=== PATIENT | female | born 1955 ===

== ENCOUNTER → 2016-04-10 | Outpatient (CLI) | payer BC ==
[2016-04-10 11:12] LABS: ALT 40 U/L (9-52); AST 22 U/L (14-36); Alkaline Phosphatase 94 U/L (38-126); Anion Gap 13 mmol/L; Blood Urea Nitrogen 13 mg/dL (7-17); C Reactive Protein 5.2 mg/L (<10.0); Calcium 9.6 mg/dL (8.4-10.2); Carbon Dioxide 22 mmol/L (22-30); Chloride 107 mmol/L (98-107); Cholesterol 146 mg/dL (<200); Creatine Kinase 53 U/L (30-135); Glucose 130 mg/dL (74-99); HDL Cholesterol 47 mg/dL (40-60); Non-African American GFR(MDRD) >60 (>60 ml/min/1.73 sqM); Potassium 4.3 mmol/L (3.5-5.1); Sodium 142 mmol/L (137-145); Total Bilirubin 0.6 mg/dL (0.2-1.3); Total Protein 7.8 g/dL (6.3-8.2); Triglycerides 117 mg/dL (<150)
== END | disposition home or self-care (01) ==
LOC: LABWHC1 09:06
PROVIDERS: ATTEND Internal Medicine
DX: N19 Unspecified kidney failure (principal); K75.81 Nonalcoholic steatohepatitis (NASH); E11.9 Type 2 diabetes mellitus without complications; E87.8 Other disorders of electrolyte and fluid balance, not elsewhere classified; E78.5 Hyperlipidemia, unspecified
CPT/HCPCS: 36415; 80053; 80061; 82550; 85652; 86140

== ENCOUNTER → 2016-04-21 | Outpatient (CLI) | payer BC ==
[2016-04-21 11:43] LABS: Hemoglobin A1C 6.9 % (4.2-6.1)
== END | disposition home or self-care (01) ==
LOC: LABWHC1 10:00
PROVIDERS: ATTEND Internal Medicine
DX: E11.9 Type 2 diabetes mellitus without complications (principal); E78.5 Hyperlipidemia, unspecified; E55.9 Vitamin D deficiency, unspecified
CPT/HCPCS: 36415; 82043; 83036

== ENCOUNTER → 2017-05-07 | Outpatient (CLI) | payer BC ==
[2017-05-07 11:27] LABS: Anion Gap 13 mmol/L; Blood Urea Nitrogen 12 mg/dL (7-17); Carbon Dioxide 25 mmol/L (22-30); Chloride 105 mmol/L (98-107); Glucose 130 mg/dL (74-99); Potassium 4.5 mmol/L (3.5-5.1); Sodium 143 mmol/L (137-145)
[2017-05-07 20:42] LABS: Hemoglobin A1C 7.1 % (4.0-6.0)
== END | disposition home or self-care (01) ==
LOC: LABWHC1 10:27
PROVIDERS: ATTEND Internal Medicine
DX: E78.5 Hyperlipidemia, unspecified (principal); E11.9 Type 2 diabetes mellitus without complications; E87.8 Other disorders of electrolyte and fluid balance, not elsewhere classified
CPT/HCPCS: 36415; 80048; 82306; 83036

== ENCOUNTER → 2017-07-17 | Outpatient (CLI) | payer BC ==
[2017-07-17 22:19] LABS: Hemoglobin A1C 7.4 % (4.0-6.0)
== END | disposition home or self-care (01) ==
LOC: LABWHC1 10:50
PROVIDERS: ATTEND Internal Medicine
DX: E55.9 Vitamin D deficiency, unspecified (principal)
CPT/HCPCS: 36415; 82306; 82947; 83036

== ENCOUNTER → 2017-12-13 | Outpatient (CLI) | payer BC ==
[2017-12-13 15:39] LABS: Anion Gap 5.9 mmol/L (4.00-12.00); Calcium 9.4 mg/dL (8.7-10.3); Carbon Dioxide 27.1 mmol/L (21.6-31.8); Potassium 4.4 mmol/L (3.5-5.5)
[2017-12-13 16:38] LABS: Hemoglobin A1C 6.9 % (4.0-6.0)
== END | disposition home or self-care (01) ==
LOC: LABWHC1 10:48
PROVIDERS: ATTEND Internal Medicine
DX: E55.9 Vitamin D deficiency, unspecified (principal); E11.9 Type 2 diabetes mellitus without complications; E87.8 Other disorders of electrolyte and fluid balance, not elsewhere classified
CPT/HCPCS: 36415; 80048; 82306; 83036

== ENCOUNTER 2019-11-23 10:48 | Emergency (ER) | payer BC, MEDICARE ==
[2019-11-23 10:55] VITALS: TEMP 98.2
[2019-11-23] MEDS ORDERED: SODIUM CHLORIDE 0.9% 1,000 ML IV STA (11:18)
--- NOTE | 2019-11-23 11:25 | ED ---
General Adult HPI - General Chief complaint: Shortness of Breath Stated complaint: cough body aches Time Seen by Provider: 11/23/19 10:56 Source: patient Mode of arrival: ambulatory Limitations: no limitations - History of Present Illness Initial comments: 64yo female presenting for all over pain, cough, fever. Patient states she has felt warm all night and developed cough congestion. She states all the joints of her body hurt and she feels weaknes. Denies chest pain abdominal pain shortness of breath. She states she is a dull headache denies any visual changes localized weakness. Denies vomiting, diarrhea. Admits to sore throat. Denies rashes. States not concerned for covid. Patient admits to DM history taking oral medications. Denies recent surgeries. Denies leg swelling. Patient appears nontoxic in no acute distress on arrival. I did obtain history between and conference interpreter. - Related Data Home Medications Medication Instructions Recorded Confirmed Atorvastatin [Lipitor] 10 mg PO HS 11/23/19 11/23/19 Glimepiride [Amaryl] 2 mg PO [id number] 11/23/19 11/23/19 metFORMIN HCL 1,000 mg PO BID 11/23/19 11/23/19 Allergies Allergy/AdvReac Type Severity Reaction Status Date / Time No Known Allergies Allergy Verified 11/23/19 11:59 Review of Systems ROS Statement: Those systems with pertinent positive or pertinent negative responses have been documented in the HPI. ROS Other: All systems not noted in ROS Statement are negative. Past Medical History Past Medical History: Diabetes Mellitus History of Any Multi-Drug Resistant Organisms: None Reported Past Surgical History: Hysterectomy Past Psychological History: No Psychological Hx Reported Past Alcohol Use History: None Reported Past Drug Use History: None Reported General Exam - General Exam Comments Initial Comments: General: The patient is awake and alert, in no distress Eye: +3 mm pupils are equal, round and reactive to light, extra-ocular movements are intact. No nystagmus. There is normal conjunctiva bilaterally. No signs of icterus. Ears, nose, mouth and throat: There are moist mucous membranes and no oral lesions. Oropharynx nonerythematous no uvular deviation or tonsillar exudates. Neck: The neck is supple, there is no tenderness or JVD. Cardiovascular: There is a regular rate and rhythm. No murmur, rub or gallop is appreciated. Respiratory: Lungs are clear to auscultation, respirations are non-labored, breath sounds are equal. No wheezes, stridor, rales, or rhonchi. Gastrointestinal: Soft, non-distended, non-tender abdomen without masses or organomegaly noted. There is no rebound or guarding present. Musculoskeletal: Normal ROM, no tenderness. Strength 5/5. Sensation intact. Radial pulses equal bilaterally 2+. Neurological: A&O x 3. CN II-XII intact grossly, There are no obvious motor or sensory deficits. Coordination appears grossly intact. Speech is normal. Skin: Skin is warm and dry and no rashes or lesions are noted. No LE edema. Psychiatric: Cooperative, appropriate mood & affect, normal judgment. Limitations: no limitations Course Vital Signs 11/23/19 11/23/19 11/23/19 10:52 11:39 12:00 Temperature 98.2 F Pulse Rate 95 80 85 Respiratory 18 18 17 Rate Blood Pressure 142/72 113/56 O2 Sat by Pulse 98 96 97 Oximetry 11/23/19 12:30 Temperature Pulse Rate 79 Respiratory 19 Rate Blood Pressure 120/67 O2 Sat by Pulse 97 Oximetry Medical Decision Making - Medical Decision Making labs stable. EKG no acute changes, some nonspecif t wave inversion noted. Denied chest pain or SOB. triage was performed without an conference interpreter and patient states she does not have SOB/states she is breathing well. On reevaluation she states she is well. I discussed labs. Importance of f/u and return for any CP/SOB. Patient is agreeable to care plan and discharge. Instructed to take tylenol or ibuprofen for pain. Patient agreeable to care plan. Dr. Lopez reviewed ekg and is agreeable to care plan. Ventricular rate 91 bpm, ME interval 154 ms, QRS respirations are 4 ms the QT/QTC 340/418 ms. This is normal sinus service no ST elevation or depression appreciated. There is nonspecific T-wave inversion. EKG reviewed by attending provider. - Lab Data Result diagrams: 11/23/19 11:41 11/23/19 11:41 Lab Results 11/23/19 11/23/19 11/23/19 Range/Units 11:41 11:41 11:41 WBC 3.8 (3.8-10.6) k/uL RBC 5.22 (3.80-5.40) m/uL Hgb 14.0 (11.4-16.0) gm/dL Hct 43.3 (34.0-46.0) % MCV 82.9 (80.0-100.0) fL MCH 26.7 (25.0-35.0) pg MCHC 32.3 (31.0-37.0) g/dL RDW 13.6 (11.5-15.5) % Plt Count 121 L (150-450) k/uL Neutrophils % 57 % Lymphocytes % 28 % Monocytes % 10 % Eosinophils % 1 % Basophils % 1 % Neutrophils # 2.2 (1.3-7.7) k/uL Lymphocytes # 1.1 (1.0-4.8) k/uL Monocytes # 0.4 (0-1.0) k/uL Eosinophils # 0.0 (0-0.7) k/uL Basophils # 0.0 (0-0.2) k/uL PT 11.0 (9.0-12.0) sec INR 1.1 (<1.2) APTT 23.5 (22.0-30.0) sec Sodium 134 L (137-145) mmol/L Potassium 4.1 (3.5-5.1) mmol/L Chloride 103 (98-107) mmol/L Carbon Dioxide 23 (22-30) mmol/L Anion Gap 8 mmol/L BUN 12 (7-17) mg/dL Creatinine 0.39 L (0.52-1.04) mg/dL Est GFR (CKD-EPI)AfAm >90 (>60 ml/min/1.73 sqM) Est GFR (CKD-EPI)NonAf >90 (>60 ml/min/1.73 sqM) Glucose 313 H (74-99) mg/dL Plasma Lactic Acid Jj (0.7-2.0) mmol/L Calcium 8.9 (8.4-10.2) mg/dL Total Bilirubin 0.7 (0.2-1.3) mg/dL AST 61 H (14-36) U/L ALT 59 H (4-34) U/L Alkaline Phosphatase 81 (38-126) U/L Troponin I (0.000-0.034) ng/mL Total Protein 7.3 (6.3-8.2) g/dL Albumin 4.0 (3.5-5.0) g/dL 11/23/19 11/23/19 Range/Units 11:41 11:41 WBC (3.8-10.6) k/uL RBC (3.80-5.40) m/uL Hgb (11.4-16.0) gm/dL Hct (34.0-46.0) % MCV (80.0-100.0) fL MCH (25.0-35.0) pg MCHC (31.0-37.0) g/dL RDW (11.5-15.5) % Plt Count (150-450) k/uL Neutrophils % % Lymphocytes % % Monocytes % % Eosinophils % % Basophils % % Neutrophils # (1.3-7.7) k/uL Lymphocytes # (1.0-4.8) k/uL Monocytes # (0-1.0) k/uL Eosinophils # (0-0.7) k/uL Basophils # (0-0.2) k/uL PT (9.0-12.0) sec INR (<1.2) APTT (22.0-30.0) sec Sodium (137-145) mmol/L Potassium (3.5-5.1) mmol/L Chloride (98-107) mmol/L Carbon Dioxide (22-30) mmol/L Anion Gap mmol/L BUN (7-17) mg/dL Creatinine (0.52-1.04) mg/dL Est GFR (CKD-EPI)AfAm (>60 ml/min/1.73 sqM) Est GFR (CKD-EPI)NonAf (>60 ml/min/1.73 sqM) Glucose (74-99) mg/dL Plasma Lactic Acid Jj 1.4 (0.7-2.0) mmol/L Calcium (8.4-10.2) mg/dL Total Bilirubin (0.2-1.3) mg/dL AST (14-36) U/L ALT (4-34) U/L Alkaline Phosphatase (38-126) U/L Troponin I <0.012 (0.000-0.034) ng/mL Total Protein (6.3-8.2) g/dL Albumin (3.5-5.0) g/dL Disposition Clinical Impression: Body aches, Cough, Chills, Sore throat, Blood glucose elevated Disposition: HOME SELF-CARE Condition: Good Instructions (If sedation given, give patient instructions): Upper Respiratory Infection (ED) Additional Instructions: Please use medication as discussed. Please follow-up with family doctor in the next 2 days of symptoms have not improved, return immediately for any chest pain or shortness of breath. Please return to emergency room if the symptoms increase or worsen or for any other concerns. Is patient prescribed a controlled substance at d/c from ED?: No Referrals: Dorian Clark MD [Primary Care Provider] - 1-2 days Time of Disposition: 12:18
--- NOTE | 2019-11-23 11:37 | XR ---
EXAMINATION TYPE: XR chest 2V DATE OF EXAM: 11/23/2019 COMPARISON: 04/27/2009 INDICATION: Difficulty breathing TECHNIQUE: Frontal and lateral views of the chest are obtained. FINDINGS: The heart size is normal. The pulmonary vasculature is normal. The lungs are clear. IMPRESSION: 1. No acute pulmonary process.
[2019-11-23 11:47] LABS: Basophils % (A) 1 %; Eosinophils % (A) 1 %; HCT 43.3 % (34.0-46.0); Lymphocytes # (A) 1.1 k/uL (1.0-4.8); Lymphocytes % (A) 28 %; MCH 26.7 pg (25.0-35.0); MCHC 32.3 g/dL (31.0-37.0); MCV 82.9 fL (80.0-100.0); Mean Platelet Volume 9.4; Monocytes # (A) 0.4 k/uL (0-1.0); Monocytes % (A) 10 %; Neutrophils # (A) 2.2 k/uL (1.3-7.7); Neutrophils % (A) 57 %; Platelet Count 121 k/uL (150-450); RBC 5.22 m/uL (3.80-5.40); RDW 13.6 % (11.5-15.5); WBC 3.8 k/uL (3.8-10.6)
[2019-11-23 11:55] LABS: INR 1.1 (<1.2); Partial Thromboplastin Time 23.5 sec (22.0-30.0)
[2019-11-23] MEDS ORDERED: KETOROLAC 15 MG/ML 1 ML VIAL IVP STA (11:58)
[2019-11-23 12:03] LABS: ALT 59 U/L (4-34); AST 61 U/L (14-36); African American GFR (CKD) >90 (>60 ml/min/1.73 sqM); Alkaline Phosphatase 81 U/L (38-126); Anion Gap 8 mmol/L; Blood Urea Nitrogen 12 mg/dL (7-17); Calcium 8.9 mg/dL (8.4-10.2); Carbon Dioxide 23 mmol/L (22-30); Chloride 103 mmol/L (98-107); Glucose 313 mg/dL (74-99); Non-African American GFR(CKD) >90 (>60 ml/min/1.73 sqM); Potassium 4.1 mmol/L (3.5-5.1); Sodium 134 mmol/L (137-145); Total Bilirubin 0.7 mg/dL (0.2-1.3); Total Protein 7.3 g/dL (6.3-8.2)
[2019-11-23 12:35] VITALS: BP 120/67; PULSE 79; RESP 19
== END 2019-11-23 12:35 | disposition home or self-care (01) ==
LOC: EC 10:48
DX: J02.9 Acute pharyngitis, unspecified (principal); E11.65 Type 2 diabetes mellitus with hyperglycemia; Z79.84 Long term (current) use of oral hypoglycemic drugs; Z90.710 Acquired absence of both cervix and uterus; Z20.828 Contact with and (suspected) exposure to other viral communicable diseases
CPT/HCPCS: 99285 ×2; 96374 ×2; 96361 ×2; 36415; 93005; 80053; 83605; 84484; 85025; 85610; 85730; 71046; U0003; J1885

== ENCOUNTER → 2019-12-16 | Outpatient (CLI) | payer BC, MEDICARE ==
[2019-12-16 11:46] LABS: African American GFR (CKD) >90 (>60 ml/min/1.73 sqM); Blood Urea Nitrogen 18 mg/dL (7-17); Non-African American GFR(CKD) >90 (>60 ml/min/1.73 sqM)
[2019-12-16 11:52] LABS: Basophils # (A) 0.1 k/uL (0-0.2); Basophils % (A) 1 %; Eosinophils # (A) 0.2 k/uL (0-0.7); Eosinophils % (A) 4 %; HCT 44.1 % (34.0-46.0); Lymphocytes # (A) 2.3 k/uL (1.0-4.8); Lymphocytes % (A) 40 %; MCH 26.9 pg (25.0-35.0); MCHC 31.7 g/dL (31.0-37.0); MCV 84.8 fL (80.0-100.0); Mean Platelet Volume 9.1; Monocytes # (A) 0.3 k/uL (0-1.0); Monocytes % (A) 5 %; Neutrophils # (A) 2.7 k/uL (1.3-7.7); Neutrophils % (A) 48 %; Platelet Count 207 k/uL (150-450); RDW 13.3 % (11.5-15.5); WBC 5.6 k/uL (3.8-10.6)
[2019-12-16 11:56] LABS: Albumin 4.3 g/dL (3.5-5.0); Bilirubin,Unconjugated 0.8 mg/dL (0.0-1.1); C Reactive Protein 8.1 mg/L (<10.0); Total Bilirubin 0.8 mg/dL (0.2-1.3); Total Protein 7.7 g/dL (6.3-8.2)
[2019-12-16 13:52] LABS: Erythrocyte Sedimentation Rate 15 mm/hr (0-20)
--- NOTE | 2019-12-16 14:46 | CT ---
EXAMINATION TYPE: CT abdomen w con DATE OF EXAM: 12/16/2019 COMPARISON: CT abdomen 11/17/2015 HISTORY: Abdominal pain, patient poor historian. CT DLP: 633.4 mGycm Automated exposure control for dose reduction was used. TECHNIQUE: Helical acquisition of images was performed from the lung bases through the top of iliac crest to include entire abdomen. CONTRAST: Performed with Oral Contrast and with IV Contrast, patient injected with 100ml mL of Isovue 300. FINDINGS: LUNG BASES: No significant abnormality is appreciated. Stable subpleural thickening in the medial asp ect of left lung base LIVER/GB: No significant interval change is appreciated, liver is enlarged and shows low-attenuation likely due to hepatic steatosis, gallbladder is within normal limits. PANCREAS: No significant abnormality is seen. SPLEEN: No significant abnormality is seen. ADRENALS: No significant abnormality is seen. KIDNEYS: Right renal mass now measures approximately 3 cm in greatest AP dimension and has grown only minimally, lesion measures approximately 2.3 cm in 2016. Left renal low dense lesion also shows a si milar appearance, there is no hydronephrosis or renal calculus evident BOWEL: No significant abnormality is seen. LYMPH NODES: No significant abnormality is appreciated. OSSEOUS STRUCTURES: No significant abnormality is seen. FREE AIR: No Free Air visible ASCITES: None visible. RETROPERITONEAL ADENOPATHY: No Retroperitoneal Adenopathy visible IMPRESSION: HEPATIC STEATOSIS AND HEPATOMEGALY. 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
[2019-12-16 22:41] LABS: Hemoglobin A1C 9.9 % (4.0-6.0)
[2019-12-16 23:00] LABS: Alpha Fetoprotein, Tumor Mkr 5.3 ng/mL (0.0-7.9)
[2019-12-16 23:27] LABS: Urine Creatinine 130.2 mg/dL
[2019-12-17 00:30] LABS: Hepatitis A Antibody IgM Non-Reactive (Non-Reactive); Hepatitis B Core IgM Non-Reactive (Non-Reactive); Hepatitis B Surface Antigen Non-Reactive (Non-Reactive); Hepatitis C IgG Antibody Non-Reactive (Non-Reactive)
== END | disposition home or self-care (01) ==
LOC: RADCTMAIN 10:29
PROVIDERS: ATTEND Internal Medicine
DX: K76.0 Fatty (change of) liver, not elsewhere classified (principal); R16.0 Hepatomegaly, not elsewhere classified; N28.89 Other specified disorders of kidney and ureter; D64.9 Anemia, unspecified; K76.9 Liver disease, unspecified; E78.5 Hyperlipidemia, unspecified; E11.65 Type 2 diabetes mellitus with hyperglycemia
CPT/HCPCS: 80076; 80074; 85652; 84443; 82565; 84520; 85025; 86140; 82105; 82306; 82043; 82570; 83036; 74160; 36415; Q9967

== ENCOUNTER → 2020-08-11 | Outpatient (CLI) | payer BC, MEDICARE ==
[2020-08-11 10:21] LABS: Appearance,Urine Clear (Clear); Bilirubin,Urine Negative (Negative); Blood,Urine Negative (Negative); Color,Urine Yellow; Glucose,Urine (UA) Negative (Negative); Ketones,Urine Negative (Negative); Leukocyte Esterase,Urine Moderate (Negative); Mucus,Urine Occasional /hpf; Nitrite,Urine Negative (Negative); Protein,Urine Negative (Negative); RBC,Urine 2 /hpf (0-5); Squamous Epithelial Cell,Urine <1 /hpf (0-4); Urobilinogen,Urine <2.0 mg/dL (<2.0); WBC,Urine 17 /hpf (0-5)
--- NOTE | 2020-08-11 13:10 | XR ---
AP pelvis HISTORY: Pain in hips Single frontal view the pelvis Bone mineralization is reduced, joint spaces and alignment are maintained. Some degenerative disc timo nges are present in the lower lumbar spine. No fracture or dislocation. There are overlying artifacts . IMPRESSION: Suspect low bone mineralization. Hip MRI could BE performed for better evaluation.
--- NOTE | 2020-08-11 13:26 | XR ---
Right knee HISTORY: Pain and arthritis 3 views of the right knee correlation prior exam 11/03/2015 Marginal spurring and joint space loss is present especially in the medial compartment, patellofemora l joint. Alignment is maintained, bone mineralization is reduced. Alignment is normal. No evident edgardo nt effusion. IMPRESSION: Osteoarthritis
--- NOTE | 2020-08-11 13:35 | XR ---
Bilateral hips HISTORY: Pain and arthritis 2 views of each hip submitted and correlated to pelvis same date Bone mineralization, joint spaces and alignment are maintained. No fracture or dislocation. IMPRESSION: Normal hips.
[2020-08-11 14:14] LABS: Basophils % (A) 1.4 %; Eosinophils # (A) 0.73 X 10*3/uL (0.04-0.35); Eosinophils % (A) 10.5 %; HGB 13.2 g/dL (12.0-15.0); Lymphocytes # (A) 2.25 X 10*3/uL (0.90-5.00); Lymphocytes % (A) 32.4 %; MCH 27.1 pg (27.0-32.0); MCHC 32.2 g/dL (32.0-37.0); MCV 84.2 fL (80.0-97.0); Mean Platelet Volume 12.7 fL (9.5-12.2); Monocytes # (A) 0.56 X 10*3/uL (0.20-1.00); Monocytes % (A) 8.1 %; Neutrophils # (A) 3.29 X 10*3/uL (1.80-7.70); Neutrophils % (A) 47.3 %; Platelet Count 187 X 10*3/uL (140-440); RBC 4.87 X 10*6/uL (4.10-5.20); RDW 13.7 % (11.5-14.5); WBC 6.95 X 10*3/uL (4.50-10.00)
[2020-08-11 17:10] LABS: Erythrocyte Sedimentation Rate 10 mm/Hr (0-30)
[2020-08-11 17:53] LABS: Hemoglobin A1C 8.8 % (4.0-6.0)
[2020-08-11 18:59] LABS: Anti-Smith Ab Interp NEGATIVE (NEGATIVE); Cyclic Citrull Pep IgG Unit 2.9 U/mL; Cyclic Citrullinated Pep IgG NEGATIVE (NEGATIVE); DNA Double-Stranded NEGATIVE (NEGATIVE)
[2020-08-11 20:14] LABS: Urine Creatinine 128.5 mg/dL
[2020-08-11 21:01] LABS: ALT 52 U/L (8-44); AST 33 U/L (13-35); African American GFR (CKD) 110.1 (60.0-200.0); Albumin/Globulin Ratio 1.56 (1.60-3.17); Alkaline Phosphatase 120 U/L (41-126); C Reactive Protein <0.4 mg/dL (0.0-0.8); Calcium 9.4 mg/dL (8.7-10.3); Carbon Dioxide 26.7 mmol/L (21.6-31.8); Chloride 105 mmol/L (96-109); Chol/HDL Ratio 3.02; Cholesterol 163 mg/dL (0-200); Creatine Kinase 33 U/L (26-186); Globulin 2.7 g/dL (1.6-3.3); Glucose 186 mg/dL (70-110); LDL Cholesterol,Calculated 90.2 mg/dL (0.0-131.0); Magnesium 1.7 mg/dL (1.5-2.4); Phosphorus 4.4 mg/dL (2.4-5.1); Potassium 4.1 mmol/L (3.5-5.5); Rheumatoid Factor, Qnt 6 IU/mL (0-15); Sodium 142 mmol/L (135-145); Total Bilirubin 0.7 mg/dL (0.3-1.2); Total Protein 6.9 g/dL (6.2-8.2); Uric Acid 3.9 mg/dL (2.9-7.7)
[2020-08-12 14:23] LABS: C-ANCA <1:20 Titer (<1:20)
== END | disposition home or self-care (01) ==
LOC: LABWHC1 09:13
PROVIDERS: ATTEND Internal Medicine
DX: D64.9 Anemia, unspecified (principal); M17.11 Unilateral primary osteoarthritis, right knee; E87.8 Other disorders of electrolyte and fluid balance, not elsewhere classified; E78.5 Hyperlipidemia, unspecified; I10 Essential (primary) hypertension; E11.65 Type 2 diabetes mellitus with hyperglycemia; E05.90 Thyrotoxicosis, unspecified without thyrotoxic crisis or storm; M81.0 Age-related osteoporosis without current pathological fracture; M06.9 Rheumatoid arthritis, unspecified; R80.9 Proteinuria, unspecified; N28.1 Cyst of kidney, acquired; R63.4 Abnormal weight loss
CPT/HCPCS: 36415; 72170; 73521; 80053; 80061; 81001; 82043; 82272; 82306; 82550; 82570; 83036; 83735; 84100; 84443; 84550; 85025; 85652; 86038; 86140; 86200; 86225; 86235; 86255; 86431

== ENCOUNTER → 2021-05-30 | Outpatient (CLI) | payer MEDICARE, BC ==
[2021-05-30 22:36] LABS: Basophils # (A) 0.09 X 10*3/uL (0.00-0.10); Basophils % (A) 1.2 %; Eosinophils # (A) 0.66 X 10*3/uL (0.04-0.35); Eosinophils % (A) 9.1 %; HCT 41.3 % (37.2-46.3); Immature Grans, Automated 0.1 %; Lymphocytes # (A) 2.39 X 10*3/uL (0.90-5.00); Lymphocytes % (A) 33.1 %; MCH 26.7 pg (27.0-32.0); MCHC 31.5 g/dL (32.0-37.0); MCV 84.8 fL (80.0-97.0); Monocytes # (A) 0.51 X 10*3/uL (0.20-1.00); Monocytes % (A) 7.1 %; NRBC Per 100 WBC 0 /100 WBCS (0.0-0.0); Neutrophils # (A) 3.56 X 10*3/uL (1.80-7.70); Neutrophils % (A) 49.4 %; Platelet Count 213 X 10*3/uL (140-440); RBC 4.87 X 10*6/uL (4.10-5.20); RDW 13.2 % (11.5-14.5); WBC 7.22 X 10*3/uL (4.50-10.00)
[2021-05-30 23:05] LABS: ALT 33 U/L (8-44); AST 22 U/L (13-35); African American GFR (CKD) 117.5 (60.0-200.0); Albumin 4.5 g/dL (3.8-4.9); Albumin/Globulin Ratio 1.53 (1.60-3.17); Alkaline Phosphatase 84 U/L (41-126); BUN/Creat Ratio 24.07 Ratio (12.00-20.00); Blood Urea Nitrogen 11.6 mg/dL (9.0-27.0); Calcium 9.4 mg/dL (8.7-10.3); Carbon Dioxide 24.2 mmol/L (20.0-27.5); Chloride 102 mmol/L (96-109); Creatine Kinase 43 U/L (26-186); Globulin 2.9 g/dL (1.6-3.3); Glucose 191 mg/dL (70-110); Magnesium 1.8 mg/dL (1.5-2.4); Non-African American GFR(CKD) 101.4 (60.0-200.0); Phosphorus 3.1 mg/dL (2.4-5.1); Potassium 4.2 mmol/L (3.5-5.5); Sodium 138 mmol/L (135-145); Total Protein 7.4 g/dL (6.2-8.2); Uric Acid 2.5 mg/dL (2.9-7.7)
[2021-05-30 23:10] LABS: C Reactive Protein <0.30 mg/dL (0.00-0.80); Chol/HDL Ratio 4.55 Ratio; LDL Cholesterol,Calculated 161.4 mg/dL (0.0-131.0); VLDL Calculation 18.02 mg/dL (5.00-40.00)
[2021-05-30 23:11] LABS: Erythrocyte Sedimentation Rate 12 mm/Hr (0-30)
[2021-05-31 05:15] LABS: DNA Double-Stranded NEGATIVE (NEGATIVE)
== END | disposition home or self-care (01) ==
LOC: LABWHC1 14:59
PROVIDERS: ATTEND Internal Medicine
DX: Z00.00 Encounter for general adult medical examination without abnormal findings (principal); E78.5 Hyperlipidemia, unspecified; E11.65 Type 2 diabetes mellitus with hyperglycemia; E03.9 Hypothyroidism, unspecified; E55.9 Vitamin D deficiency, unspecified; M81.0 Age-related osteoporosis without current pathological fracture; D64.9 Anemia, unspecified; M10.9 Gout, unspecified; N18.30 Chronic kidney disease, stage 3 unspecified; N20.0 Calculus of kidney; J45.909 Unspecified asthma, uncomplicated
CPT/HCPCS: 36415; 80053; 80061; 82306; 82550; 83036; 83735; 84100; 84439; 84443; 84550; 85025; 85652; 86038; 86140; 86225

== ENCOUNTER → 2022-02-21 | Outpatient (CLI) | payer MEDICARE ==
[2022-02-21 15:06] LABS: ALT 31 U/L (8-44); AST 23 U/L (13-35); African American GFR (CKD) 108.7 (60.0-200.0); Albumin 4.3 g/dL (3.8-4.9); Albumin/Globulin Ratio 1.49 (1.60-3.17); Alkaline Phosphatase 98 U/L (41-126); BUN/Creat Ratio 19.73 Ratio (12.00-20.00); Blood Urea Nitrogen 11.8 mg/dL (9.0-27.0); Calcium 9.9 mg/dL (8.7-10.3); Carbon Dioxide 24.1 mmol/L (20.0-27.5); Chloride 103 mmol/L (96-109); Creatine Kinase 34 U/L (26-186); Globulin 2.9 g/dL (1.6-3.3); Glucose 151 mg/dL (70-110); Non-African American GFR(CKD) 93.8 (60.0-200.0); Potassium 4.9 mmol/L (3.5-5.5); Sodium 139 mmol/L (135-145); Total Protein 7.1 g/dL (6.2-8.2); Uric Acid 3.7 mg/dL (2.9-7.7)
[2022-02-21 15:14] LABS: C Reactive Protein <0.30 mg/dL (0.00-0.80); Chol/HDL Ratio 4.71 Ratio; LDL Cholesterol,Calculated 159.3 mg/dL (0.0-131.0)
[2022-02-21 15:50] LABS: Basophils # (A) 0.11 X 10*3/uL (0.00-0.10); Basophils % (A) 1.3 %; Eosinophils # (A) 0.52 X 10*3/uL (0.04-0.35); Eosinophils % (A) 6.1 %; HCT 43.4 % (37.2-46.3); HGB 13.6 g/dL (12.0-15.0); Immature Grans, Automated 0 %; Lymphocytes # (A) 3.79 X 10*3/uL (0.90-5.00); Lymphocytes % (A) 44.4 %; MCH 26.6 pg (27.0-32.0); MCHC 31.3 g/dL (32.0-37.0); MCV 84.9 fL (80.0-97.0); Mean Platelet Volume 11.7 fL (9.5-12.2); Monocytes # (A) 0.56 X 10*3/uL (0.20-1.00); Monocytes % (A) 6.6 %; NRBC Per 100 WBC 0 /100 WBCS (0.0-0.0); Neutrophils # (A) 3.55 X 10*3/uL (1.80-7.70); Neutrophils % (A) 41.6 %; Platelet Count 226 X 10*3/uL (140-440); RBC 5.11 X 10*6/uL (4.10-5.20); RDW 14.2 % (11.5-14.5); WBC 8.53 X 10*3/uL (4.50-10.00)
[2022-02-21 16:22] LABS: Erythrocyte Sedimentation Rate 46 mm/Hr (0-30)
[2022-02-21 17:47] LABS: Appearance,Urine Clear (Clear); Bilirubin,Urine Negative (Negative); Blood,Urine Negative (Negative); Color,Urine Yellow (Yellow); Ketones,Urine Negative (Negative); Nitrite,Urine Negative (Negative); Specific Gravity,Urine 1.016 (1.001-1.030); Urobilinogen,Urine 0.2 (0.2,1.0)
[2022-02-21 17:52] LABS: Bacteria,Urine None Seen /HPF (None Seen)
[2022-02-21 18:45] LABS: Urine Creatinine 95.2 mg/dL (28.0-217.0)
== END | disposition home or self-care (01) ==
LOC: LABWHC1 08:41
PROVIDERS: ATTEND Internal Medicine
DX: Z00.00 Encounter for general adult medical examination without abnormal findings (principal); E78.5 Hyperlipidemia, unspecified; E11.65 Type 2 diabetes mellitus with hyperglycemia; N39.0 Urinary tract infection, site not specified; M81.0 Age-related osteoporosis without current pathological fracture; M10.9 Gout, unspecified; E55.9 Vitamin D deficiency, unspecified; D63.1 Anemia in chronic kidney disease; N18.30 Chronic kidney disease, stage 3 unspecified; M06.4 Inflammatory polyarthropathy
CPT/HCPCS: 36415; 80053; 80061; 81001; 82043; 82306; 82550; 82570; 83036; 83735; 84100; 84443; 84550; 85025; 85652; 86140; 87086

== ENCOUNTER → 2022-07-19 | Outpatient (CLI) | payer MEDICARE ==
[2022-07-19 15:13] LABS: ALT 22 U/L (8-44); AST 17 U/L (13-35); Chol/HDL Ratio 3.14 Ratio; LDL Cholesterol,Calculated 100.3 mg/dL (0.0-131.0); VLDL Calculation 16.92 mg/dL (5.00-40.00)
== END | disposition home or self-care (01) ==
LOC: LABWHC1 07:40
PROVIDERS: ATTEND Internal Medicine
DX: E11.65 Type 2 diabetes mellitus with hyperglycemia (principal); E78.5 Hyperlipidemia, unspecified; E55.9 Vitamin D deficiency, unspecified
CPT/HCPCS: 36415; 80061; 82306; 83036; 84450; 84460

== ENCOUNTER → 2022-08-03 | Outpatient (CLI) | payer MEDICARE ==
--- NOTE | 2022-08-03 10:20 | XR ---
EXAMINATION TYPE: XR knee complete RT DATE OF EXAM: 08/03/2022 COMPARISON: Right knee radiograph 08/11/2020, 11/03/2015 HISTORY: Pain arthritis TECHNIQUE: Frontal, lateral and oblique images of the right knee are obtained. FINDINGS: There is no acute fracture/dislocation evident. Mild structure frontal joint space narrowi ng with minimal spurring along the medial compartment. The overlying soft tissue appears unremarkable . IMPRESSION: 1. There is no acute fracture or dislocation seen. 2. Minimal osteoarthritic changes.
== END | disposition home or self-care (01) ==
LOC: LABWHC1 08:35
PROVIDERS: ATTEND Internal Medicine
DX: M17.11 Unilateral primary osteoarthritis, right knee (principal); M81.0 Age-related osteoporosis without current pathological fracture

== ENCOUNTER → 2022-08-07 | Outpatient (CLI) | payer MEDICARE ==
--- NOTE | 2022-08-07 18:36 | BD ---
EXAMINATION TYPE: Axial Bone Density DATE OF EXAM: 08/07/2022 CLINICAL HISTORY: 67 years old Female. ICD-10 CODE: N95.1 Height: 61in Weight: 152lb FRAX RISK QUESTIONS: History of Fracture in Adulthood: no Secondary Osteoporosis: RISK FACTORS HISTORY OF: Family History of Osteoporosis: unknown Active: yes Postmenopausal woman: yes Lost more than 2 inches in height since high school: unknown Frequent falls: no MEDICATIONS: Additional Medications: diabetic meds, cholesterol meds, vitamin d Additional History: pt's translated her health history EXAM MEASUREMENTS: Bone mineral densitometry was performed using the [employer]. Bone mineral density as measured about the Lumbar spine is: ----- L1-L4(G/cm2): 0.852 T Score Values are as follows: ----- L1: -2.7 ----- L2: -3.2 ----- L3: -2.8 ----- L4: -2.5 ----- L1-L4: -2.7 Z Score Values are as follows: unavailable ----- Bone mineral density has: Decreased -7.6% since study of: 04-17-2013 Bone mineral density about the R hip (g/cm2): 0.900 Bone mineral density about the L hip (g/cm2): 0.866 T Score values are as follows: -----R Neck: -1.3 -----L Neck: -1.5 -----R Total: -0.9 -----L Total: -1.1 Z Score values are as follows: unavailable ----- Bone mineral density has: Decreased 10% since study of: 04-17-2013 FRAX%s: The graph provided illustrates a 5.9% chance for a major osteoporotic fx and a 1.1% chance fo r the hips probability for fx in 10 years time. IMPRESSION: Osteoporosis (T Score less than -2.5). There is increased fracture risk and therapy is usually indicated based on age. Re-Screen 1-2 years. NOTE: T-SCORE=SD OF THE YOUNG ADULT MEAN.
== END | disposition home or self-care (01) ==
LOC: RADBDWWP 14:46
PROVIDERS: ATTEND Internal Medicine
DX: M81.0 Age-related osteoporosis without current pathological fracture (principal); M85.89 Other specified disorders of bone density and structure, multiple sites; N95.1 Menopausal and female climacteric states
CPT/HCPCS: 77080

== ENCOUNTER → 2022-10-04 | Outpatient (CLI) | payer MEDICARE ==
[2022-10-04 11:20] LABS: Blood Urea Nitrogen 13.5 mg/dL (9.0-27.0); Calcium 9.6 mg/dL (8.7-10.3); Chloride 105 mmol/L (96-109); Glucose 171 mg/dL (70-110); Potassium 4.4 mmol/L (3.5-5.5); Sodium 140 mmol/L (135-145)
== END | disposition home or self-care (01) ==
LOC: LABWHC1 07:56
PROVIDERS: ATTEND Internal Medicine
DX: E11.65 Type 2 diabetes mellitus with hyperglycemia (principal); E87.8 Other disorders of electrolyte and fluid balance, not elsewhere classified; M81.0 Age-related osteoporosis without current pathological fracture
CPT/HCPCS: 36415; 80048; 83036

== ENCOUNTER → 2022-12-25 | Outpatient (CLI) | payer MEDICARE ==
--- NOTE | 2022-12-25 09:38 | XR ---
EXAMINATION TYPE: XR knee complete RT DATE OF EXAM: 12/25/2022 COMPARISON: 08/03/2022 HISTORY: Pain TECHNIQUE: Three views are submitted. FINDINGS: Diffuse osteopenia. There is moderate osteoarthritic changes. No acute fracture or dislocation. [place] us structures are intact. No acute fracture seen. IMPRESSION: 1. Diffuse osteopenia with moderate osteoarthritis.
== END | disposition home or self-care (01) ==
LOC: RADXRMAIN 09:11
PROVIDERS: ATTEND Internal Medicine
DX: M17.11 Unilateral primary osteoarthritis, right knee (principal); M85.861 Other specified disorders of bone density and structure, right lower leg

== ENCOUNTER → 2023-09-03 | Outpatient (CLI) | payer MEDICARE ==
[2023-09-03 11:05] LABS: Appearance,Urine Clear (Clear); Bilirubin,Urine Negative (Negative); Blood,Urine Negative (Negative); Color,Urine Yellow (Yellow); Ketones,Urine Negative (Negative); Nitrite,Urine Negative (Negative); Specific Gravity,Urine 1.016 (1.001-1.030); Urobilinogen,Urine 0.2 E.U./DL
[2023-09-03 11:09] LABS: Bacteria,Urine None Seen (None Seen)
[2023-09-03 11:24] LABS: Urine Creatinine 72.5 mg/dL (28.0-217.0)
--- NOTE | 2023-09-03 15:46 | US ---
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 No nephrolithiasis is seen. The urin kylie bladder is anechoic. Bilateral ureteral jets are seen. IMPRESSION: Enlarging hyperechoic mass of the lower pole right kidney with prior ultrasound measurement of 2.2 x 1.8 cm and measurement on CT of 2019 of 1.7 cm. This could reflect an enlarging angiomyolipoma howev er clear cell renal cell carcinoma is also a consideration. Unenhanced solid contrast-enhanced CT of the kidneys and/or MRI is advised.
== END | disposition home or self-care (01) ==
LOC: RADUSWWP 06:54
PROVIDERS: ATTEND Internal Medicine
DX: D30.01 Benign neoplasm of right kidney (principal)
CPT/HCPCS: 76770; 81001; 82043; 82570; 82947; 83036; 87086

== ENCOUNTER → 2023-12-25 | Outpatient (CLI) | payer MEDICARE ==
[2023-12-25 15:25] LABS: Blood Urea Nitrogen 11.7 mg/dL (9.0-27.0); Calcium 9.4 mg/dL (8.7-10.3); Carbon Dioxide 26.2 mmol/L (21.6-31.8); Chloride 105 mmol/L (96-109); Glucose 169 mg/dL (70-110); LDL Cholesterol,Calculated 164.6 mg/dL (0.0-131.0); Potassium 4.6 mmol/L (3.5-5.5); Sodium 141 mmol/L (135-145); VLDL Calculation 17.78 mg/dL (5.00-40.00)
== END | disposition home or self-care (01) ==
LOC: LABWHC1 07:35
PROVIDERS: ATTEND Internal Medicine
DX: E11.65 Type 2 diabetes mellitus with hyperglycemia (principal)
CPT/HCPCS: 36415; 80048; 80061; 83036

== ENCOUNTER → 2024-01-14 | Outpatient (CLI) | payer MEDICARE ==
[2024-01-14 12:58] LABS: African American GFR (CKD) >90 (>60 ml/min/1.73 sqM); Blood Urea Nitrogen 14 mg/dL (7-17); Non-African American GFR(CKD) >90 (>60 ml/min/1.73 sqM)
--- NOTE | 2024-01-14 14:18 | CT ---
EXAMINATION TYPE: CT abdomen wo/w con DATE OF EXAM: 01/14/2024 COMPARISON: 12/16/2019 CLINICAL INDICATION: Female, 68 years old with history of D49.59 NEOPLASM OF UNSPECIFIED BEHAVIOR OF R93.41; PHH, renal mass TECHNIQUE: Performed with Oral Contrast and without and with IV Contrast, patient injected with 100ml mL of Isov ue 300. CT DLP: 1077.[address] CTDI: mGy Automated exposure control for dose reduction was used. FINDINGS: There is a stable 6.5 mm groundglass nodule in the right middle lobe. There is a stable 17 mm pleural -based nodule/mass in the right lower lobe medially. There is a single small gallstone but no gallbladder distention, wall thickening or pericholecystic f luid. There is no biliary ductal dilatation. There is no focal mass or organomegaly involving the liver, pancreas, spleen or adrenal glands. Moder ate steatosis of the liver. There is a stable heterogeneous partially fat-containing 2.9 cm mass in the anterior right kidney whi ch displays irregular/partial enhancement. There is no renal calcification or hydronephrosis. There i s an 11 mm simple cortical cyst in the medial left kidney. The caliber of the abdominal aorta is normal in the right peritoneal adenopathy or hemorrhage. The bowel loops are normal in caliber and no dilatation, inflammation or obstruction. No free intrape ritoneal air or fluid. No focal osseous lesions are seen. IMPRESSION: 1. Stable lower lobe lung nodules. 2. 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 3. Stable Steatosis of the liver [facility] Diego Blanco, , 01/14/2024 2:16 PM
== END | disposition home or self-care (01) ==
LOC: RADCTMAIN 12:04
PROVIDERS: ATTEND Internal Medicine
DX: N28.89 Other specified disorders of kidney and ureter (principal); R91.8 Other nonspecific abnormal finding of lung field; K76.0 Fatty (change of) liver, not elsewhere classified; D49.59 Neoplasm of unspecified behavior of other genitourinary organ; R93.41 Abnormal radiologic findings on diagnostic imaging of renal pelvis, ureter, or bladder
CPT/HCPCS: 82565; 84520; 74170; 36415; Q9967